=== PATIENT | female | born 2000 | race Caucasian/White ===

== ENCOUNTER → 2021-06-15 15:32 | Outpatient (CLI) | payer OTHER, SELFPAY ==
[2021-06-15 16:35] LABS: Add Manual Diff / Slide Review NO; Basophils Absolute Auto 0 /uL (0-100); Basophils Percent Auto 0.4 % (0-2); Eosinophils Absolute Auto 0 /uL (0-450); Eosinophils Percent Auto 0.8 % (2-4); Hematocrit 39.4 % (36-46); Hemoglobin 13.4 g/dL (12.0-16.0); Lymphocytes Absolute Auto 1700 /uL (1100-4500); Lymphocytes Percent Auto 31.9 % (25-40); Mean Corpuscular HGB Conc 33.9 % (30-36); Mean Corpuscular Hemoglobin 29.3 PG (26-34); Mean Corpuscular Volume 86.4 fL (80-100); Monocytes Absolute Auto 400 /uL (0-900); Monocytes Percent Auto 8.4 % (3-14); Neutrophils Absolute Auto 3100 /uL (1500-7000); Neutrophils Percent Auto 58.5 % (50-75); Platelet Count 220 X10^3/uL (150-400); Red Blood Cell Count 4.56 X10^6/uL (4.0-5.2); Red Cell Distribution Width 12.5 % (11.6-14.8); White Blood Cell Count 5.2 X10^3/uL (4.5-11.0)
[2021-06-15 16:50] LABS: Alanine Aminotransferase 30 IU/L (<35); Albumin 4.6 g/dL (3.5-5.0); Albumin Globulin Ratio 1.5 (1.0-2.8); Alkaline Phosphatase 58 U/L (38-126); Aspartate Aminotransferase 32 IU/L (14-36); BUN Creatinine Ratio 19.4 (6-22); Bilirubin Total 0.3 mg/dL (0.2-1.3); Blood Urea Nitrogen 12 mg/dL (7-17); Calcium 9.4 mg/dL (8.4-10.2); Carbon Dioxide 27 mmol/L (22-32); Chloride 106 mmol/L (98-107); Estimated Glomerular Filt Rate > 60.0 mL/min (>60); Globulin 3.1 g/dL (1.7-4.1); Glucose 88 mg/dL (70-100); HEMOLYSIS < 15 (0-50); Lipase 73 U/L (23-300); Potassium 4.3 mmol/L (3.4-5.1); Sodium 140 mmol/L (137-145); Total Protein 7.7 g/dL (6.3-8.2)
[2021-06-16 14:01] LABS: Interpretation Negative (Negative)
== END ==
PROVIDERS: PCP Registered Nurse; Referring Provider Registered Nurse; Visit Provider Registered Nurse
DX: R10.9 Unspecified abdominal pain (principal)
CPT/HCPCS: 36415; 80053; 83013; 83690; 85025

== ENCOUNTER → 2021-06-23 09:10 | Outpatient (CLI) | payer OTHER, SELFPAY ==
--- NOTE | 2021-06-23 09:11 | DI.US.S_ITS ---
PROCEDURE: US ABDOMEN COMPLETE INDICATIONS: ABDOMINAL PAIN TECHNIQUE: Real-time scanning was performed of the abdominal and retroperitoneal organs, with image documentation. COMPARISON: None. FINDINGS: Liver: Liver is normal in size and homogeneous in echotexture. Gallbladder: Gallbladder is sonographically normal. No gallstones. No gallbladder wall thickening. No pericholecystic fluid. No sonographic Perkins sign. Biliary ducts: Intrahepatic bile ducts are non-dilated. Extrahepatic bile duct caliber measures 2 point mm. Normal is 6-7 mm or less in diameter, or 10 mm or less post-cholecystectomy. Pancreas: Visualized portions of the pancreas are sonographically normal. Spleen: Spleen is normal in size and homogeneous in echotexture. Kidneys: Kidneys are normal in size and echotexture. Right kidney measures 10.6 cm long; left kidney measures 12.1 cm long. No hydronephrosis or nephrolithiasis. No solid masses. Aorta: Visualized aorta is normal in caliber at less than 3 cm. Iliacs: Proximal common iliac arteries are normal in caliber at less than 2.5 cm. IVC: Intrahepatic inferior vena cava is patent. Miscellaneous: No free abdominal fluid. IMPRESSION: Normal abdominal sonogram. Dictated by: Nabila Burroughs MD, PhD on 06/23/2021 at 11:13 Approved by: Nabila Burroughs MD, PhD on 06/23/2021 at 11:14
[2021-06-25 12:08] LABS: Fecal Immunochemical Test Negative (Negative)
== END ==
PROVIDERS: PCP Registered Nurse; Referring Provider Registered Nurse; Visit Provider Registered Nurse
DX: R10.9 Unspecified abdominal pain (principal); R19.7 Diarrhea, unspecified; R19.5 Other fecal abnormalities
CPT/HCPCS: 76700; 82274; 87045; 87077; 87186; 87899

== ENCOUNTER → 2021-07-25 15:34 | Outpatient (CLI) | payer OTHER, SELFPAY ==
--- NOTE | 2021-07-25 15:35 | DI.US.S_ITS ---
PROCEDURE: US PELVIC COMPLETE INDICATIONS: PELVIC AND PERINEAL PAIN TECHNIQUE: Real-time scanning was performed of the pelvic organs, with image documentation. Additional endovaginal scanning was necessary due to incomplete visualization of the adnexal and endometrial structures by transabdominal scanning. COMPARISON: None. FINDINGS: Uterus: Uterus is normal in size at 6.3 x 2.9 x 2.4 cm. The endometrium measures 3.9 mm in combined thickness. Ovaries: Normal ovaries bilaterally measuring 3.0 x 1.5 x 1.5 cm on the right and 4.0 x 2.3 x 2.4 cm on the left. Dominant left follicular cyst measuring 2.3 cm. Normal amount of physiologic free fluid within the pelvis. Other: No pathologic free abdominal or pelvic fluid. IMPRESSION: No source for pelvic pain identified. Dictated by: Dayton Langley [facility] Interpreted: César Hess MD on 07/25/2021 at 16:35 Transcribed by: JOSSELYN on 07/25/2021 at 16:36 Approved by: César Hess M.D. on 07/25/2021 at 17:28
[2021-07-25 18:06] LABS: Pregnancy Test Urine Negative (Negative)
[2021-07-25 19:32] LABS: Urine N gonorrhoeae NOT DETECTED
[2021-07-25 19:52] LABS: Urine Chlamydia NOT DETECTED
[2021-07-26 07:30] LABS: RPR Screen Non Reactive (Non Reactive)
[2021-07-26 19:12] LABS: HSV I/II IgM <0.91 Ratio (0.00-0.90)
[2021-07-27 16:53] LABS: HIV 1 & 2 Ab/Ag 4th Gen Combo NEGATIVE (NEGATIVE); Hep C Virus Ab w/Reflex Quant NEGATIVE s/c (NEGATIVE); Hepatitis B Surface Antigen NEGATIVE s/c (NEGATIVE)
[2021-07-30 11:36] LABS: HSV 2 IGG AB < 0.91 index (0.00-0.90); HSV1IGG < 0.91 index (0.00-0.90)
== END ==
PROVIDERS: PCP Registered Nurse; Referring Provider Registered Nurse; Visit Provider Registered Nurse
DX: R10.2 Pelvic and perineal pain (principal); Z11.3 Encounter for screening for infections with a predominantly sexual mode of transmission; Z20.2 Contact with and (suspected) exposure to infections with a predominantly sexual mode of transmission; N93.9 Abnormal uterine and vaginal bleeding, unspecified
CPT/HCPCS: 36415; 76830; 76856; 81025; 86592; 86694; 86695; 86696; 86803; 87340; 87389; 87491; 87591

== ENCOUNTER → 2021-09-26 09:20 | Outpatient (CLI) | payer OTHER, SELFPAY ==
--- NOTE | 2021-09-26 09:22 | DI.RAD.S_ITS ---
PROCEDURE: XR HAND RT MIN 3V INDICATIONS: right hand injury, pain TECHNIQUE: 3 views of the hand(s) acquired. COMPARISON: [facility], CR, XR WRIST RT MIN 3V, 09/26/2021, 9:20. FINDINGS: Bones: No fractures or dislocations. Carpal bones are normally aligned. No suspicious bony lesions. Soft tissues: No suspicious soft tissue calcifications. IMPRESSION: No visualized acute fracture or dislocation. However, if clinical concern and/or pain persist, short interval imaging followup in 7-10 days is recommended, as occult injury cannot be definitively excluded. Dictated by: Isha Guaman M.D. on 09/26/2021 at 16:44 Approved by: Isha Guaman M.D. on 09/26/2021 at 16:45
--- NOTE | 2021-09-26 09:22 | DI.RAD.S_ITS ---
PROCEDURE: XR WRIST RT MIN 3V INDICATIONS: right wrist injury, pain TECHNIQUE: 4 views of the wrist were acquired. COMPARISON: None. FINDINGS: Bones: No fractures or dislocations. No suspicious bony lesions. Scaphoid view: Scaphoid is intact. Soft tissues: No suspicious soft tissue calcifications. IMPRESSION: No fracture. No osseous lesion. If symptoms and/or clinical suspicion for pathology persists, further assessment with repeat radiographs (7-10 days) or advanced imaging (e.g. CT, MRI or bone scan) should be considered. Dictated by: Nabila Burroughs MD, PhD on 09/26/2021 at 11:21 Approved by: Nabila Burroughs MD, PhD on 09/26/2021 at 11:22
== END ==
PROVIDERS: PCP Registered Nurse; Referring Provider Registered Nurse; Visit Provider Registered Nurse
DX: S69.91XA Unspecified injury of right wrist, hand and finger(s), initial encounter (principal)
CPT/HCPCS: 73110; 73130

== ENCOUNTER → 2025-07-02 11:59 | Outpatient (CLI) | payer OTHER, SELFPAY ==
[2025-07-02 12:35] LABS: Add Manual Diff / Slide Review NO; Hematocrit 40.7 % (36-46); Hemoglobin 13.9 g/dL (12.0-16.0); Lymphocytes Absolute Auto 1200 /uL (1100-4500); Mean Corpuscular HGB Conc 34.2 % (30-36); Mean Corpuscular Hemoglobin 30.1 PG (26-34); Mean Corpuscular Volume 87.8 fL (80-100); Platelet Count 228 X10^3/uL (150-400)
[2025-07-02 12:53] LABS: HEMOLYSIS < 15 (0-50); Iron 115 ug/dL (37-170)
[2025-07-02 12:55] LABS: Alanine Aminotransferase 21 IU/L (<35); Albumin 5.2 g/dL (3.5-5.0); Albumin Globulin Ratio 1.7 (1.0-2.8); Alkaline Phosphatase 54 U/L (38-126); Blood Urea Nitrogen 10 mg/dL (7-17); Calcium 10.0 mg/dL (8.4-10.2); Carbon Dioxide 26 mmol/L (22-32); Chloride 103 mmol/L (98-107); Estimated Glomerular Filt Rate > 60 mL/min (>60); Globulin 3.0 g/dL (1.7-4.1); Glucose 109 mg/dL (70-99); HEMOLYSIS < 15 (0-50); Potassium 4.3 mmol/L (3.4-5.1); Sodium 142 mmol/L (137-145); Total Protein 8.2 g/dL (6.3-8.2)
[2025-07-02 13:03] LABS: Percent Iron Saturation 35 % (15-50); Total Iron Binding Capacity 331 ug/dL (265-497); Transferrin 279 mg/dL (206-381)
[2025-07-02 13:27] LABS: Thyroid Stimulating Hormone 0.592 uIU/mL (0.47-4.68)
[2025-07-02 13:32] LABS: Ferritin 31 ng/mL (6-137)
== END ==
PROVIDERS: PCP Student in an Organized Health Care Education/Training Program; Referring Provider Student in an Organized Health Care Education/Training Program; Visit Provider Student in an Organized Health Care Education/Training Program
DX: D72.819 Decreased white blood cell count, unspecified (principal); R53.83 Other fatigue
CPT/HCPCS: 36415; 80053; 82728; 83540; 83550; 84443; 85025